=== PATIENT | female | born 1950 | race Caucasian/White ===

== ENCOUNTER 2019-08-01 09:17 | Day surgery (SDC) | payer OTHER, SELFPAY ==
--- NOTE | 2019-08-01 | PATH_ITS ---
[facility] Accession Number: [id number] . 01 Material submitted: . PART A: colon - RIGHT COLON BX PART B: colon - TRANSVERSE COLON BX PART C: colon - LEFT COLON BX . 01 Clinical history: . COLONOSCOPY W/POSS BX . 02 Diagnosis: A. Right Colon, Biopsy: Mild active colitis; please see comment. Negative for granulomata, dysplasia or malignancy. . B-C: Transverse, Left Colon, Biopsies: Colonic mucosa with no significant diagnostic abnormality. Negative for active inflammation, granulomata, dysplasia or malignancy. MR 08/02/2019 0941 Local . 02 Comment: Part A) The histologic findings in the right colon biopsy raise a differential diagnosis including infection, drug/toxin-induced injury, and in the appropriate clinical setting, idiopathic inflammatory bowel disease. . 02 Electronically signed: . Francisco Porter MD, PhD, Pathologist NPI- [id number] . 01 Gross description: . Part A: RIGHT COLON BX: Received in formalin are 3 fragment(s) of tucker, soft tissue measuring 0.2 x 0.2 x 0.2 cm to 0.4 x 0.3 x 0.2 cm submitted entirely in 1 cassette(s) Part B: TRANSVERSE COLON BX: Received in formalin are multiple fragment(s) of tucker, soft tissue measuring 0.1 x 0.1 x 0.1 cm to 0.3 x 0.2 x 0.2 cm submitted entirely in 1 cassette(s) Part C: LEFT COLON BX: Received in formalin are multiple fragment(s) of tucker, soft tissue measuring 0.1 x 0.1 x 0.1 cm to 0.3 x 0.2 x 0.2 cm which is entirely submitted and submitted entirely in 1 cassette(s) /[facility] [place] 08/01/[address] [place] [address] . 02 Pathologist provided ICD-10: K52.9 . 02 CPT . 427165, 075084, 682387 Performed at: 01 [facility] [address] [id number] MD Maykel Thomas MD Phone: [phone] Performed at: 02 [facility] [address] [place], [place] [id number] MD Sadaf Wallace MD Phone: [phone]
[2019-08-01 09:39] VITALS: BP 135/70; PULSE 64; RESP 18; TEMP 36.4; O2SAT 99
--- NOTE | 2019-08-01 09:54 | PM.HP.1 ---
History of Present Illness History of Present Illness Chief complaint: [id number] COLONOSCOPY W/POSS BX Meds Home Medications and Allergies Home Medications Medication Instructions Recorded Confirmed Type azathioprine 100 mg PO DAILY 08/01/19 08/01/19 History carvedilol [Coreg] 3.125 mg PO Q12H 08/01/19 08/01/19 History doxepin 25 mg PO BEDTIME 08/01/19 08/01/19 History empagliflozin [Jardiance] 10 mg PO QAM 08/01/19 08/01/19 History fluticasone propionate [Flonase 2 spray INTRANASAL DAILY 08/01/19 08/01/19 History Allergy Relief] glimepiride 1 mg PO BID 08/01/19 08/01/19 History metformin 1,000 mg PO BID 08/01/19 08/01/19 History ondansetron HCl [Zofran] 4 mg PO Q6H PRN 08/01/19 08/01/19 History oxybutynin chloride 5 mg PO BID 08/01/19 08/01/19 History pantoprazole 40 mg PO DAILY 08/01/19 08/01/19 History rosuvastatin 5 mg PO DAILY 08/01/19 08/01/19 History Allergies Allergy/AdvReac Type Severity Reaction Status Date / Time Penicillins Allergy Anaphylaxis Verified 08/01/19 10:04 Exam Narrative Exam Narrative: Oropharynx free of lesions Chest clear to auscultation percussion Cardiac exam reveals no S3 or murmur Assessment & Plan Assessment & Plan narrative: Distal ulcerative colitis with need for 2 year follow-up and multiple biopsies. Risks, benefits, alternatives have been explained.
[2019-08-01 09:56] VITALS: BMI 34.4
--- NOTE | 2019-08-01 10:15 | PM.OP.ENDO ---
Operative Date/Time/Diagnoses Date of procedure: 08/01/19 Time of procedure: 10:15 Pre-op diagnosis: See indication and findings Procedure & Clinicians Study performed: Colonoscopy Same procedure as scheduled: Yes Indications: Ulcerative colitis Surgeon: Sohail Killian Procedure Notes Procedure in detail: After informed consent was obtained the patient was placed in left lateral decubitus position. The video colonoscope was introduced the rectum slowly advanced cecum. On slow withdrawal mucosa was carefully examined. The scope was removed. The patient tolerated procedure well. Preparation was good. Blood loss none Complications none Sedation Total sedation time 23 minutes Versed 7 mg fentanyl 200 mg IV titration Findings 1. Completely normal colonoscopy to cecum. Two surveillance biopsies were taken every 10 cm and placed into 3 bottles, right, transverse, and left colon. We will be in touch regarding her biopsies. She should stay on her current medications. She will need follow-up colonoscopy in no later than 2 years.
[2019-08-01] MEDS: MIDAZOLAM 5 MG/5 ML VIAL IV (10:49)
[2019-08-01] MEDS: fentaNYL 250 MCG/5 ML INJ IV (10:49)
[2019-08-01 10:56] VITALS: BP 120/53; PULSE 62; RESP 17; TEMP 36; O2SAT 100
[2019-08-01 11:01] VITALS: BP 112/50; PULSE 75; RESP 20; O2SAT 98
[2019-08-01 11:07] VITALS: BP 118/56; PULSE 72; RESP 18; TEMP 37; O2SAT 99
[2019-08-01 11:10] VITALS: BP 135/68; PULSE 60; RESP 16; TEMP 36.1; O2SAT 99
--- NOTE | 2019-08-01 11:17 | SUR.PHASEII ---
pt arrived to phase II via stretcher. Pt brought to bedside. pt denies any pain at this time. bed in lowest position and call light given to pt.
[2019-08-01 11:26] VITALS: BP 122/64; PULSE 57; RESP 15; TEMP 36.2; O2SAT 99
== END 2019-08-01 11:32 | disposition home or self-care (01) ==
PROVIDERS: PCP Family Medicine; Visit Provider Internal Medicine Gastroenterology
PROC: 0DJD8ZZ Inspection of Lower Intestinal Tract, Via Natural or Artificial Opening Endoscopic (ICD-10-PCS; CPT 45378; principal; 2019-08-01 10:30)
DX: K52.9 Noninfective gastroenteritis and colitis, unspecified (principal)
CPT/HCPCS: 45380; J2250; J3010

== ENCOUNTER → 2022-07-26 13:12 | Outpatient (CLI) | payer OTHER, SELFPAY ==
[2022-07-26 14:00] LABS: COVID19 -Nasal RAPID Negative (Negative)
== END ==
PROVIDERS: PCP Internal Medicine; Visit Provider Surgery
DX: Z20.822 Contact with and (suspected) exposure to COVID-19 (principal); Z01.812 Encounter for preprocedural laboratory examination
CPT/HCPCS: 87635; C9803

== ENCOUNTER 2022-07-28 13:07 | Day surgery (SDC) | payer OTHER, SELFPAY ==
[2022-07-28] VITALS (7 sets, daily range): BP systolic 141–167; BP diastolic 60–76; PULSE 56–78; RESP 12–21; TEMP 36.2–36.6; O2SAT 98–99; BMI 33.0
--- NOTE | 2022-07-28 | PATH_ITS ---
[facility] Accession Number: [id number] No. of containers..03 Tissue . 01 Material submitted: . PART A: colon - RIGHT COLON BIOPSY PART B: colon - TRANSVERSE COLON BIOPSY PART C: colon - LEFT COLON BIOPSY . 01 Diagnosis: A-C: Right Colon, Transverse Colon, Left Colon, Biopsies: Colonic mucosa with no diagnostic abnormality. Negative for active, chronic, and microscopic colitis. Negative for dysplasia and malignancy. . MRV 07/30/2022 1556 Local . 01 Electronically signed: . Sadaf Wallace MD, Pathologist NPI- [id number] . 01 Gross description: . Part A: RIGHT COLON BIOPSY: Received in formalin are 4 fragment(s) of tucker, soft tissue measuring 0.3 x 0.1 x 0.1 cm to 0.2 x 0.1 x 0.1 cm submitted entirely in 1 cassette(s) Part B: TRANSVERSE COLON BIOPSY: Received in formalin are multiple fragment(s) of tucker, soft tissue measuring 1.2 x 0.3 x 0.1 cm in aggregate submitted entirely in 1 cassette(s) Part C: LEFT COLON BIOPSY: Received in formalin are multiple fragment(s) of tucker, soft tissue measuring 1.4 x 0.3 x 0.1 cm in aggregate submitted entirely in 1 cassette(s) /CPE 07/29/2022 0750 Local . 01 Pathologist provided ICD-10: D50.9 . 01 CPT . 580104, 698318, 178016 Specimen Comment: A courtesy copy of this report has been sent to [phone], [phone] Specimen Comment: [id number] Performed at: 01 [facility] [address] [id number] MD Maykel Thomas MD Phone: [phone]
--- NOTE | 2022-07-28 13:24 | PM.HP.1 ---
History of Present Illness History of Present Illness Date Patient Seen: 07/28/22 Chief complaint: DX COLONOSCOPY Narrative: History of ulcerative colitis. Need to assess disease activity and surveillance for colorectal cancer Patient History Family & Social History Social History: household members spouse Meds Home Medications and Allergies Home Medications Medication Instructions Recorded Confirmed Type azathioprine 100 mg tablet 100 mg PO DAILY 08/01/19 08/01/19 History carvedilol 3.125 mg tablet (Coreg) 3.125 mg PO Q12H 08/01/19 08/01/19 History doxepin 25 mg capsule 25 mg PO BEDTIME 08/01/19 08/01/19 History empagliflozin 10 mg tablet 10 mg PO QAM 08/01/19 08/01/19 History (Jardiance) fluticasone propionate 50 2 spray intranasal DAILY 08/01/19 08/01/19 History mcg/actuation nasal spray,suspension (Flonase Allergy Relief) glimepiride 1 mg tablet 1 mg PO BID 08/01/19 08/01/19 History metformin 1,000 mg tablet 1,000 mg PO BID 08/01/19 08/01/19 History ondansetron HCl 4 mg tablet 4 mg PO Q6H PRN Nausea 08/01/19 08/01/19 History (Zofran) oxybutynin chloride 5 mg tablet 5 mg PO BID 08/01/19 08/01/19 History pantoprazole 40 mg tablet,delayed 40 mg PO DAILY 08/01/19 08/01/19 History release rosuvastatin 5 mg tablet 5 mg PO DAILY 08/01/19 08/01/19 History Allergies Allergy/AdvReac Type Severity Reaction Status Date / Time Penicillins Allergy Anaphylaxis Verified 08/01/19 10:04 Exam Narrative Exam Narrative: Oropharynx free of lesions Chest clear to auscultation percussion Cardiac exam reveals no S3 or murmur Assessment & Plan Assessment & Plan narrative: History of ulcerative colitis. Need to assess disease activity and surveil for colorectal cancer. Risks, benefits, alternatives have been explained. Time Spent With Patient Critical Care time: I spent a total of [] minutes of critical care time on this patient's care today; this time is exclusive of procedural time.
--- NOTE | 2022-07-28 13:35 | P.OP.COLON_ITS ---
Operative Date/Time/Diagnoses Date of procedure: 07/28/22 Pre-op diagnosis: See indication and findings Procedure & Clinicians Study performed: Colonoscopy Indications: Ulcerative colitis Surgeon: Sohail Killian Procedure Notes Procedure in detail: After informed consent was obtained patient was placed in left lateral decubitus position. The video colonoscope was introduced the rectum slowly advanced cecum. Preparation was good. On slow withdrawal mucosa was carefully examined. The scope was removed. The patient tolerated procedure well. Blood loss none Complications none Sedation propofol Findings 1. Normal colonoscopy to cecum no mild decrease in vascular pattern in areas. Biopsies were taken to every Q 10 cm and placed in bottles corresponding to right, transverse, and left colon. Iris will follow up with Dr. Tara Augustin either an [place] or never it. They will discuss how to handle her azathioprine She should have follow-up colonoscopy in 2 years.
[2022-07-28] MEDS: SODIUM CHLORIDE 0.9% 1,000 ML 84 ML IV (14:12)
[2022-07-28] MEDS: ONDANSETRON 4 MG/2 ML INJ IV (14:53)
--- NOTE | 2022-07-28 14:55 | SUR.PHASEI ---
Patient reported nausea and started coughing. Dr. Killian notified regarding nausea and 8/10 RLQ pain. VVO zofran 4mg IV, which was given.
--- NOTE | 2022-07-28 14:57 | SUR.PHASEI ---
Patient reported nausea resolved.
--- NOTE | 2022-07-28 15:21 | SUR.PHASEII ---
patient ambulated to wheelchair with steady gait. tolerated fluids. Provided discharge instructions. pt stated understanding. discharged pt by wheelchair to private vehicle in stable condition. see flowsheet for assessment details.
== END 2022-07-28 15:22 | disposition home or self-care (01) ==
PROVIDERS: PCP Internal Medicine; Referring Provider Internal Medicine Gastroenterology; Visit Provider Internal Medicine Gastroenterology
PROC: 0DJD8ZZ Inspection of Lower Intestinal Tract, Via Natural or Artificial Opening Endoscopic (ICD-10-PCS; CPT 45378; principal; 2022-07-28 14:00)
DX: Z87.19 Personal history of other diseases of the digestive system (principal); Z85.038 Personal history of other malignant neoplasm of large intestine; E11.9 Type 2 diabetes mellitus without complications; Z79.84 Long term (current) use of oral hypoglycemic drugs; D50.9 Iron deficiency anemia, unspecified; I10 Essential (primary) hypertension; J45.909 Unspecified asthma, uncomplicated
CPT/HCPCS: 45378; J2405; J2704